=== PATIENT | female | born 1990 | race Caucasian/White ===

== ENCOUNTER 2020-05-21 10:43 | Emergency (ER) | payer OTHER ==
[~2020-05-21] VITALS: Ht 157.5 cm; Wt 97.5 kg
[~2020-05-21 10:43] MED LIST: ARTIFICIAL TEA3.5 GM LEFTEYE; BENZ100A PO; LEVSOD50; LISI20 PO; MEDR150I IM; METF500 PO; Prednisone50 MG PO; VALA500 PO
[2020-05-21] MEDS ORDERED: ERYT1OIN RIGHTEYE ×2 (11:46→11:57)
== END 2020-05-21 12:06 | disposition home or self-care (01) ==
LOC: ER 10:43
DX: S01.111A Laceration without foreign body of right eyelid and periocular area, initial encounter (principal); I10 Essential (primary) hypertension; F17.210 Nicotine dependence, cigarettes, uncomplicated; Z79.84 Long term (current) use of oral hypoglycemic drugs; Z79.899 Other long term (current) drug therapy; Z23 Encounter for immunization; W55.03XA Scratched by cat, initial encounter
CPT/HCPCS: 12011; 90471; 90714; 99282; A9270

== ENCOUNTER 2023-10-01 06:13 | Day surgery (SDC) | payer OTHER ==
[~2023-10-01] VITALS: Ht 158 cm; Wt 87.8 kg
[2023-10-01] VITALS (9 sets, daily range): BP systolic 129–167; BP diastolic 82–100
[~2023-10-01 06:13] MED LIST changes: +ERYT1OIN RIGHTEYE
[2023-10-01] MEDS ORDERED: Lactated Ringer's 1,000 ML IV SCH (06:25)
[2023-10-01] MEDS ORDERED: METF500 PO (06:44)
[2023-10-01] MEDS ORDERED: LEVSOD25 PO (06:46)
[2023-10-01] MEDS ORDERED: ATOR10 PO (06:46)
[2023-10-01] MEDS ORDERED: AMLO10 PO (06:46)
[2023-10-01] MEDS ORDERED: HYDRA25 PO (06:48)
[2023-10-01] MEDS ORDERED: FENO160 PO (06:49)
[2023-10-01] MEDS ORDERED: Bupivacaine 0.5% HCl 5 MG/ML 30MLVIAL ONE (07:02)
[2023-10-01] MEDS ORDERED: FentaNYL Citrate 50 MCG/ML 2 ML Injection ONE ×2 (07:15→07:50)
[2023-10-01] MEDS ORDERED: propofoL 20 ML IV ONE (07:15)
[2023-10-01] MEDS ORDERED: Lidocaine HCl 2% 20 ML MDV ONE (07:16)
[2023-10-01] MEDS ORDERED: SuccINYLCHOLINE Chloride 100 MG/5 ML 5MLSYR ONE (07:26)
[2023-10-01] MEDS ORDERED: Rocuronium Bromide 10 MG/ML 5ML Injection IV ONE ×2 (07:26→07:50)
[2023-10-01] MEDS ORDERED: Dexamethasone Sod Phos 10 MG/ML 1ML VIAL ONE (07:50)
[2023-10-01] MEDS ORDERED: Ondansetron HCl 2 MG / ML 2ML Vial ONE (07:50)
[2023-10-01] MEDS ORDERED: Sugammadex Sodium 200 MG/2ML SDV (100 MG/ML) ONE (08:23)
[2023-10-01] MEDS ORDERED: Labetalol HCL 5 MG/ML 4ML Injection (Single Dose) ONE (08:23)
[2023-10-01] MEDS ORDERED: Ketorolac Tromethamine 30mg Vial ONE (08:23)
[2023-10-01] MEDS ORDERED: HYDROcodone 5-APAP 325 TAB PO PRN (08:45)
--- NOTE | 2023-10-01 10:05 | NUR ---
Discharge instructions reviewed with patient. Patient verbalizes understanding. Copy given to patient to take home. Patient up to Ambulate independently. Gait steady. mEDICATED WITH TOTAL OF TWO NORCO FOR PAIN. DENIES NAUSEA. TOLERATING PO. Discharged via wheelchair to private car for ride home WITH SIGNIFICANT OTHER.
== END 2023-10-01 23:04 | disposition home or self-care (01) ==
LOC: ORSCMMR 06:13 → ORD 07:30 → ORSCMMR 07:30
PROVIDERS: Surgery
PROC: 0FT44ZZ Resection of Gallbladder, Percutaneous Endoscopic Approach (ICD-10-PCS; principal; 2023-10-01 07:30)
DX: K80.10 Calculus of gallbladder with chronic cholecystitis without obstruction (principal); E11.9 Type 2 diabetes mellitus without complications; I10 Essential (primary) hypertension; E28.2 Polycystic ovarian syndrome; E05.90 Thyrotoxicosis, unspecified without thyrotoxic crisis or storm; Z68.35 Body mass index [BMI] 35.0-35.9, adult; Z79.899 Other long term (current) drug therapy
CPT/HCPCS: 74300; 82947; 88304; A9270; C1729; J0330; J1100; J1885; J2405; J2704; J3010; J7120